=== PATIENT | female | born 1940 | race Caucasian/White ===

== ENCOUNTER → 2024-03-20 17:02 | Outpatient (REF) | payer MEDICARE, BC, SELFPAY | LOC: RAD 17:02 | PROVIDERS: ATTENDING PHYSICIAN Specialist; FAMILY PHYSICIAN Student in an Organized Health Care Education/Training Program | DX: M79.662 Pain in left lower leg (principal) | CPT/HCPCS: 93971 ==

== ENCOUNTER 2024-06-03 10:54 | Emergency (ER) | payer MEDICARE, BC, SELFPAY ==
[2024-06-03 11:02] VITALS: BP 167/70
[2024-06-03 11:48] VITALS: BMI 30.8
--- NOTE | 2024-06-03 13:05 | ED.GENMED ---
History of Present Illness
General
Chief Complaint: Head Injury
Source: patient
Exam Limitations: none
Time Seen by Provider: 06/03/24 12:05
History of Present Illness
History of Present Illness:
84-year-old female presents after a slip and fall. She fell backwards hitting her head. She notes a bump to the back of her head and notes neck pain as well. She notes after she felt her tongue was swollen. She took a Benadryl and that is
improved. There was no loss of conscious. No other complaints at this time
Past History
Past History
ED Past Medical History: Arrthythmia (Atrial fib), Cancer (Skin cancer), GERD, HTN, Hypercholesterolemia, [place] and Other (Pneumonia x 4 with 'scar tissue' in lungs. Followed by Dr. Rene., Hepatitis, Left ankle fracture, )
ED Past Surgical History: Cardiac (Stents X 4), (X 1), Gynecological (Right breast surgery), Orthopedic ( Left wrist surgery, ), Tonsilectomy and Other (cataracts, )
Social History
Tobacco: Non-smoker
Alcohol: None
Drug: None
Personal:
Living: alone
Employment: Retired
Family History
Family History: Unable to obtain
Phy Exam
Physical Exam
Physical Exam:
General: Well-appearing female no acute respiratory distress
HEENT: Normocephalic pupils equal round reactive to light TMs normal contusion noted to posterior scalp there is a bite elizabeth noted to the left side of the tongue the tongue is not swollen posterior pharynx is patent
Neurologic: Alert and oriented normal gait
Musculoskeletal exam: Mild cervical spine tenderness.
Skin: Warm no rash
Course
Orders/Labs/Results
Orders:
Orders
06/03/24 12:45
CT Cervical Spine W/o Iv Contr Urgent
Comment:
Reason For Exam: fall
CT Head W/o Iv Contrast Urgent
Comment:
Reason For Exam: fall
06/03/24 13:09
Acetaminophen [Tylenol] 650 mg PO NOW STA
Vital Signs
Initial and Last Documented VS:
Initial Vital Signs
Temp Pulse Resp BP Pulse Ox
98.2 F 70 18 167/70 97
06/03/24 11:02 06/03/24 11:02 06/03/24 11:02 06/03/24 11:02 06/03/24 11:02
Last Documented Vital Signs
Temp Pulse Resp BP Pulse Ox
98.2 F 70 18 167/70 97
06/03/24 11:02 06/03/24 11:02 06/03/24 11:02 06/03/24 11:02 06/03/24 11:02
MDM/Problems Addressed
Differential Diagnosis Includes:
Slip and fall with head and neck pain. Consider fracture of skull or neck versus intracranial hemorrhage. Also consider just contusion. CT of head and cervical spine pending. I suspect the tongue swelling may be related to biting her tongue when
she fell. There is a bite elizabeth on the side of her tongue. There is no current tongue swelling
*Critical Care Note
Total Time (30-74mins, 75-104mins- exclusive of procedures): Not Applicable
Update Note
Update Note:
CT of head and cervical spine were performed reviewed and are negative for acute findings other than scalp hematoma. There is no fractures. Cervical spine appears well without acute traumatic injury. Patient reassured. Stable for discharge home
ED Attending Note
-
Portions of this chart may have been created with voice recognition software.� Occasional wrong word or��sound alike� substitutions may have occurred due to the inherent limitations of voice recognition software.
Discharge Plan
Departure
Patient Disposition: Home (Routine Discharge)
Date of Disposition: 06/03/24
Time of Disposition: 14:55
Patient with high blood pressure during this ER visit?: No
Discharge Problem:
Contusion
Instructions: Contusion (DC)
Prescriptions:
No Action
calcium carbonate 600 MG tablet
600 mg PO BID
magnesium 250 MG tablet
250 mg PO DAILY
nitroglycerin 0.4 MG tablet, sublingual
0.4 mg sublingual [id number] PRN (Reason: chest pain ) Qty: 25 3RF
pantoprazole 40 MG tablet,delayed release (DR/EC)
40 mg PO BID
amlodipine 5 MG tablet
5 mg PO DAILY Qty: 30 0RF
losartan 50 mg Tablet
50 mg PO DAILY
atorvastatin 80 mg Tablet
80 mg PO DAILY
ascorbic acid (vitamin C) [Vitamin C] 1,000 mg Tablet
1,000 mg PO BID
cetirizine [Zyrtec] 10 mg Tablet
5 mg PO DAILY
cyanocobalamin (vitamin B-12) 1,000 mcg Tablet
1,000 mcg PO DAILY
aspirin 81 mg Tablet,Delayed Release (Dr/Ec)
81 mg PO DAILY
metoprolol succinate 25 mg Tablet Extended Release 24 Hr
25 mg PO DAILY
ezetimibe [Zetia] 10 mg Tablet
10 mg PO DAILY
cholecalciferol (vitamin D3) [Vitamin D3] 50 mcg (2,000 unit) Tablet
50 mcg PO DAILY
[place] 3
1 cap PO DAILY
azithromycin [Zithromax] 250 mg tablet
250 mg PO DAILY 4 Days Qty: 4 0RF
Referrals:
Nohemi Alberto MD [Family Provider] -
Activity Restrictions/Additional Instructions:
You may ice to the sore spot. You may take ibuprofen or Tylenol for pain peer return if worse otherwise follow-up with family doctor
Interventions
Interventions:
*Risk Screen - Suicide Last Done: 06/03/24 11:49
*General Assessment Last Done: 06/03/24 11:02
*Neglect/Abuse Screening Last Done: 06/03/24 11:49
ED- Fall Risk Assessment Last Done: 06/03/24 11:52
*ED COVID-19 Vaccine History Last Done: 06/03/24 11:02
ED- Neurological Assessment Last Done: 06/03/24 11:52
ED-Skin Assessment Last Done: 06/03/24 11:52
Discharge Date and Time
Print Language: OCCITAN
[2024-06-03] MEDS: TYLENOL 650 MG PO (13:21)
[2024-06-03 15:23] VITALS: BP 164/64
[2024-06-03 15:25] VITALS: BP 164/64
== END 2024-06-03 15:42 | disposition home or self-care (01) ==
LOC: EMR 10:54
PROVIDERS: EMERGENCY PHYSICIAN Emergency Medicine; FAMILY PHYSICIAN Student in an Organized Health Care Education/Training Program
DX: S00.03XA Contusion of scalp, initial encounter (principal); W01.0XXA Fall on same level from slipping, tripping and stumbling without subsequent striking against object, initial encounter; I48.91 Unspecified atrial fibrillation; K21.9 Gastro-esophageal reflux disease without esophagitis; I10 Essential (primary) hypertension; E78.00 Pure hypercholesterolemia, unspecified; I25.2 Old myocardial infarction; Z85.828 Personal history of other malignant neoplasm of skin; Z95.5 Presence of coronary angioplasty implant and graft
CPT/HCPCS: 99284; 70450; 72125

== ENCOUNTER 2025-03-28 13:35 | Observation (INO) | payer MEDICARE, BC, SELFPAY ==
[2025-03-28] VITALS (18 sets, daily range): BP systolic 130–225; BP diastolic 55–86; BMI 24.9
--- NOTE | 2025-03-28 08:24 | ED.GENMED ---
History of Present Illness
General
Chief Complaint: Chest Pain
Source: patient and family (Daughter)
Exam Limitations: none
Time Seen by Provider: 03/28/25 07:47
Nursing documentation reviewed up to this point in time: agreed with
History of Present Illness
History of Present Illness:
84-year-old female with a past medical history of hypertension, hyperlipidemia, atrial fibrillation, CAD status post stents, GERD who presents to the emergency room for evaluation of chest pain. Patient reports onset of symptoms around 1 AM when
she woke up to go to the bathroom and they have been constant since that time. She reports pressure in the chest radiates towards the left side and towards the left shoulder. No clear triggering or relieving factors noted. She has associated
dizziness. She reports associated nausea no vomiting. Denies abdominal pain. She denies any shortness of breath. She has had mild nonproductive cough recently. No fever or chills. Denies any swelling or pain in the legs. She denies any other
complaints. She says she had similar symptoms with [place] in 2017. She was seen at that time by Dr. Verdugo.
Past History
Past History
ED Past Medical History: Arrthythmia (Atrial fib), Cancer (Skin cancer), GERD, HTN, Hypercholesterolemia, [place] and Other (Pneumonia x 4 with 'scar tissue' in lungs. Followed by Dr. Rene., Hepatitis, Left ankle fracture, )
ED Past Surgical History: Cardiac (Stents X 4), (X 1), Gynecological (Right breast surgery), Orthopedic ( Left wrist surgery, ), Tonsilectomy and Other (cataracts, )
Social History
Tobacco: Non-smoker
Alcohol: None
Drug: None
Personal:
Living: alone
Employment: Retired
Family History
Family History: Unable to obtain
Review of Systems
Review of Systems
All Other Systems: ROS reviewed and negative except as documented in HPI and ROS
Constitutional: Denies fever
Respiratory: Reports cough; Denies trouble breathing
Cardiac: Reports chest pain; Denies palpitations
ABD/GI: Reports nausea; Denies abdominal pain or vomiting
: Denies flank pain
Musculoskeletal: Denies edema, neck pain or back pain
Neurological: Reports dizzy; Denies headache
Phy Exam
Physical Exam
Physical Exam:
General: Awake, alert, oriented x3; no acute distress
Head: Normocephalic, atraumatic
Eyes: Conjunctiva normal, sclera anicteric
Throat: Airway intact, handling secretions
Neck: Trachea midline, no JVD
Lungs: Clear to auscultation bilaterally, no wheezing, rales, rhonchi
Heart: Regular rate and rhythm, no murmurs, gallops, or rubs
Abd: Soft, non distended, nontender
Neuro: No gross deficits
Skin: no rash in area of concern
Extremities: No edema in extremities, equal pulses in all extremities
Scores
Heart Failure Risk
Heart Failure Risk Score: Not Applicable
Heart Score for Chest Pain Patients
STEMI patient?: No
History: Slightly or Non-Suspicious
ECG: Nonspecific Repolarization
Age: >/= 65 years
Risk Factors: >/= 3 Risk Factors or History of CAD
Troponin: </= Normal Limit
Heart Score for Chest Pain Patients: 5
Heart Score Risk: 20.3% MACE over next 6 weeks
Withdrawal Assessment of Alcohol
Withdrawal Assessment Completed?: Not applicable
Course
Orders/Labs/Results
Orders:
Orders
03/28/25
Electrocardiogram (*1) Stat
Comment: DONE
03/28/25 07:40
Electrocardiogram (*1) Urgent
Reason for Study: Chest Pain
03/28/25 07:41
EKG- Treatment ONCE
03/28/25 07:54
CR Chest - 2 Views Urgent
Comment:
Reason For Exam: cp
03/28/25 08:18
Complete Blood Count/With Diff Urgent
Comprehensive Metabolic Panel Urgent
NT-proBNP Urgent
PT/INR [Prothrombin Time] Urgent
PTT Urgent
Troponin I Urgent
03/28/25 08:23
Aspirin Chewable [Low Strength Aspirin] 243 mg PO NOW STA
Nitroglycerin Sublingual [Nitrostat (Sublingual)] 0.4 mg SL NOW STA
03/28/25 08:41
Nitroglycerin Sublingual [Nitrostat (Sublingual)] 0.4 mg SL NOW STA
03/28/25 08:46
Acetaminophen [Tylenol] 650 mg PO NOW STA
03/28/25 09:04
CARDIOLOGY CONSULT Urgent
Consulting Provider: Ryan Nagy
Was physician already notified: Yes
03/28/25 10:25
Nitroglycerin Ointment [Nitro-Bid] 1 inch TOPICAL NOW STA
Ondansetron Injectable [Zofran] 4 mg IV NOW STA
03/28/25 11:13
Troponin I Urgent
Abnormal Lab Results
03/28/25
08:18
MPV 10.5 H fL
(7.4-10.4)
Chloride 110 H mmol/L
(98-107)
Glucose 126 H mg/dl
(70-99)
03/28/25 08:18
03/28/25 08:18
Vital Signs
Initial and Last Documented VS:
Initial Vital Signs
Temp Pulse Resp BP Pulse Ox
37.1 C 73 18 130/86 94
03/28/25 07:38 03/28/25 07:38 03/28/25 07:38 03/28/25 07:38 03/28/25 07:38
Last Documented Vital Signs
Temp Pulse Resp BP Pulse Ox
37.0 C 50 20 183/55 94
03/28/25 08:21 03/28/25 10:53 03/28/25 08:40 03/28/25 10:53 03/28/25 08:40
MDM/Problems Addressed
Differential Diagnosis Includes:
Angina/ACS, GERD, symptomatic A-fib, pneumonia
MDM/Problems Addressed:
84-year-old female with history as noted presents for evaluation of chest pressure radiating to the left shoulder associated with mild dizziness and mild nausea; she says she had similar symptoms with [place] in 2017. She is hypertensive here otherwise
normal vitals. Physical exam as above. EKG shows no STEMI. Will place an IV send labs including a CBC and a CMP, coags, troponin. Check chest x-ray. Will treat with nitroglycerin and provide aspirin�she took baby aspirin this morning will
provide additional 243 mg chewable. Will monitor very closely reassess after the above.
Initial labs reviewed: CBC and CMP no clinically significant abnormalities. Troponin undetectable. Will trend troponin. Her blood pressure improved with nitroglycerin x 2, symptoms improved she says she is pain-free however she did develop
headache and so was given Tylenol. Given her HEART score and report of similar symptoms with prior [place], case was discussed with cardiology for consultation.
Clinical reassessment patient remains chest pain-free she is having some mild nausea now. Given Zofran. Blood pressure increasing once again now up to 180�will provide some Nitropaste.
Patient seen by cardiology recommended admission for monitoring of symptoms, blood pressure control, trending of troponins. They will consult patient. Case discussed with hospitalist.
Chronic conditions affecting care:
CAD
*Radiology
Radiology exam reviewed: preliminary read by ED provider
*Pulse Oximetry
Patient hypoxic: no
*EKG
Interpreted by ED Provider?: Yes
Heart Rate: 71
Rate: normal
Rhythm: sinus
[place]: normal axis
Interval: first degree heart block
QRS Pattern: normal QRS
Ischemia: other (Nonspecific T wave abnormalities)
*Critical Care Note
Total Time (30-74mins, 75-104mins- exclusive of procedures): Not Applicable
Data Reviewed
Review of Other/Old Records Reveals: Labs and Records
Source: patient, records and family
Patient Management
Discussion with other providers: Hospitalist (Discussed with hospitalist) and Assistant To The Ceo (Discussed with cardiology)
Escalation/DeEscalation of care consider admission/obs:
Admission indicated
ED Attending Note
-
Portions of this chart may have been created with voice recognition software.� Occasional wrong word or��sound alike� substitutions may have occurred due to the inherent limitations of voice recognition software.
Discharge Plan
Departure
Patient Disposition: Admit
Date of Disposition: 03/28/25
Time of Disposition: 11:46
Admit to doctor: Myrna
Presentation/result/management discussed w/ accepting MD/DO: Hospitalist
Discharge Problem:
Chest pain, Hypertension
Prescriptions:
No Action
calcium carbonate 600 MG tablet
600 mg PO BID
magnesium 250 MG tablet
250 mg PO DAILY
nitroglycerin 0.4 MG tablet, sublingual
0.4 mg sublingual [id number] PRN (Reason: chest pain ) Qty: 25 3RF
pantoprazole 40 MG tablet,delayed release (DR/EC)
40 mg PO BID
amlodipine 5 MG tablet
5 mg PO DAILY Qty: 30 0RF
atorvastatin 80 mg Tablet
80 mg PO DAILY
ascorbic acid (vitamin C) [Vitamin C] 1,000 mg Tablet
1,000 mg PO BID
cetirizine [Zyrtec] 10 mg Tablet
5 mg PO DAILY
cyanocobalamin (vitamin B-12) 1,000 mcg Tablet
1,000 mcg PO DAILY
aspirin 81 mg Tablet,Delayed Release (Dr/Ec)
81 mg PO DAILY
metoprolol succinate 25 mg Tablet Extended Release 24 Hr
25 mg PO DAILY
ezetimibe [Zetia] 10 mg Tablet
10 mg PO DAILY
cholecalciferol (vitamin D3) [Vitamin D3] 50 mcg (2,000 unit) Tablet
50 mcg PO DAILY
[place] 3
1 cap PO DAILY
Referrals:
Nohemi Alberto MD [Family Provider] -
Interventions
Interventions:
*Risk Screen - Suicide Last Done: 03/28/25 07:38
*General Assessment Last Done: 03/28/25 07:38
*Neglect/Abuse Screening Last Done: 03/28/25 07:38
*ED- Fall Risk Assessment Last Done: 03/28/25 08:21
*ED COVID-19 Vaccine History Last Done: 03/28/25 08:21
ED- Cardiac Assessment Last Done: 03/28/25 08:21
Discharge Date and Time
Print Language: MALDIVIAN
[2025-03-28 08:32] LABS: INR 0.98; PT 13.3 Sec (11.4-14.6)
[2025-03-28 08:33] LABS: APTT 28.1 Sec (23.4-35.0)
[2025-03-28] MEDS: LOW STRENGTH ASPIRIN 243 MG PO (08:33)
[2025-03-28] MEDS: NITROSTAT (SUBLINGUAL) 0.4 MG SL ×2 (08:33→08:50)
[2025-03-28 08:37] LABS: % Basophils 1.1 % (0-2); % Eosinophils 3.4 % (0-6); % Immature Granulocytes 0.5 % (0-0.5); % Lymphocytes 28.8 % (20.5-51.1); % Monocytes 7.1 % (1.7-9.3); % Neutrophils 59.1 % (42.2-75.2); Absolute Basophils 0.1 10^3/uL (0-0.2); Absolute Eosinophils 0.2 10^3/uL (0-0.7); Absolute Lymphocytes 1.8 10^3/uL (1.2-3.4); Absolute Monocytes 0.4 10^3/uL (0.1-0.6); Absolute Neutrophils 3.6 10^3/uL (1.4-6.5); Hematocrit 38.8 % (37.0-47.0); Hemoglobin 12.8 g/dL (12.0-16.0); Mean Corpuscular Hgb 29.2 pg (27.0-31.0); Mean Corpuscular Volume 88.4 fL (81.0-99.0); Mean Platelet Volume 10.5 fL (7.4-10.4); Nucleated Red Blood Cells % 0 %; Platelet Count 136 10^3/uL (130-400); Red Blood Cell Count 4.39 10^6/uL (4.20-5.40); Red Cell Dist. Width 13.4 % (11.5-14.5); White Blood Cell Count 6.2 10^3/uL (4.8-10.8)
[2025-03-28 08:39] LABS: ALT (SGPT) 17 U/L (0-35); AST (SGOT) 19 U/L (14-36); Albumin 4.3 g/dl (3.5-5.0); Alkaline Phosphatase 76 U/L (38-126); Blood Urea Nitrogen 13 mg/dl (7-17); Calcium 9.2 mg/dl (8.4-10.2); Carbon Dioxide 25 mmol/L (22-30); Chloride 110 mmol/L (98-107); Estimated Creatinine Clearance 68 ml/min; Glucose 126 mg/dl (70-99); Potassium 3.7 mmol/L (3.5-5.1); Sodium 145 mmol/L (135-145); Total Bilirubin 0.6 mg/dl (0.2-1.3); Total Protein 7.3 g/dl (6.3-8.2); eGFR > 60.00
[2025-03-28 08:47] LABS: NT-proBNP 734 pg/ml; Troponin I < 0.012 ng/ml
[2025-03-28] MEDS: TYLENOL 650 MG PO ×2 (08:51→21:11)
--- NOTE | 2025-03-28 10:02 | CON.CAR ---
Addendum entered and electronically signed by Ryan Nagy MD 03/28/25 11:51:
I saw and examined the patient.
The PROPERTY MANAGER's note was reviewed and I agree with the note.
Primary power plant manager Dr. Mullins
84-year-old woman with history of coronary artery disease with previous history of multivessel stenting, LAD, D1 and RCA. Last catheterization 2021 with mild residual CAD. Patient presented with chest discomfort she had some chest discomfort for
30 to 60 minutes at approximately 1 AM midsternal discomfort. She then had some additional discomfort this morning that lasted about an hour and a half. Currently chest pain-free ECG in ER without acute ischemic changes first troponin negative.
Recently blood pressure has been elevated despite compliance with medical therapy. Patient's daughter is at the bedside. They live together. Daughter states that blood pressure was elevated yesterday and is elevated in the ER today systolic blood
pressure currently 180. Patient's normally followed by Dr. Paco Mullins. Back in August she had reported some nocturnal chest discomfort he ordered a nuclear perfusion stress test and it appears it was not completed until months later. Her
last nuclear stress was in December 2024 full report not available but her power plant manager stated that she went 3 minutes and 30 seconds of a Paco protocol achieving 108% of the max peak heart rate with no nuclear perfusion evidence of myocardial
ischemia or prior myocardial infarct there was a small fixed apical perfusion defect felt to be due to soft tissue.
Exact etiology of chest discomfort unclear. Unclear if it is consistent with the previous discomfort that she had in August which was then evaluated by a nuclear stress test. Would consider both cardiac and noncardiac causes. Reviewed issues
with patient and her daughter. I had additional discussion with her primary power plant manager on the phone. And also communicated issues to the emergency department physician.
- Admit for additional observation and treatment
- Treat hypertension. (Increase amlodipine to 10 mg a day. Patient already took her dose this morning so we can give another 5 mg), continue metoprolol, Nitropaste)
- Continue aspirin 81 mg a day
- Serial troponins.
- Continue treatment for reflux. Patient on Protonix as outpatient
- Based on clinical course and results of troponins additional recommendations regarding management will be made.
Original Note:
Consultation
Consultation Request
Date/Time Consultation Requested: 03/28/25 9a
Date/Time Consultation Performed: 03/28/25 9:45a
Requesting Provider: Dr. Ramos
Performing Provider: JERAMIE Gill for Dr. Nagy
Reason for Consultation: chest pressure
Medical History
-
Chief Complaint: chest pressure
History of Present Illness:
Mrs. Kaminski is an 84 yo female (power plant manager is Dr. Mullins) with CAD [place] in 2016 with PCI, widely patent stents (proximal LAD, D1, distal RCA) with mild residual CAD on cath 2021, HTN, HLD, and GERD, who presents to the ER with c/o chest pressure
that woke her from sleep at 1am today. Radiation of pain down left arm, she took an 81mg ASA and fell back asleep. She then woke at her normal time of 5am and noticed the chest pressure was there, but no left arm pain. She waited until her
daughter woke up around 7am and brought her to the ER where she received 2 SL NTG tabs and her chest pressure resolved. She also had high BP upon arrival to the ER that improved with NTG SL. She saw Dr. Mullins in December and had a nuclear
stress test last month that was 'good'. Currently she denies any further chest pressure.
Past Medical History
Past Medical History: Other (as above)
Social History
Tobacco: Non-Smoker
Personal:
Living: With Family (daughter and her family)
Family History
Family History: Reviewed & Not Pertinent
Allergies / Home Medications
Allergy/AdvReac Type Severity Reaction Status Date / Time
GURDEEP Inhibitors Allergy Tongue Verified 03/28/25 07:38
Swelling/angioedema
ARB-Angiotensin Receptor Allergy Swelling/an Verified 03/28/25 07:38
Antagonist gioedema
NSAIDS (Non-Steroidal Allergy Hives Verified 03/28/25 07:38
Anti-Inflamma
prednisone Allergy agitation Verified 03/28/25 07:38
Sulfa (Sulfonamide Allergy pt reports Verified 03/28/25 07:38
Antibiotics) 'turning
blue' as a
child
�Medication �Instructions �Recorded �Confirmed �Type
calcium carbonate 600 mg PO BID Supplement 04/17/17 03/28/25 History
magnesium 250 mg tablet 250 mg PO DAILY Supplement 04/17/17 03/28/25 History
nitroglycerin 0.4 mg sublingual 0.4 mg sublingual [id number] PRN 04/20/17 03/28/25 Rx
tablet chest pain #25 tabs
pantoprazole 40 mg tablet,delayed 40 mg PO BID Gastrointestinal issue 02/08/22 03/28/25 History
release
amlodipine 5 mg tablet 5 mg PO DAILY #30 tabs 02/11/22 03/28/25 Rx
[place] 3 1 cap PO DAILY 04/14/23 03/28/25 History
ascorbic acid (vitamin C) 1,000 mg 1,000 mg PO BID 04/14/23 03/28/25 History
tablet (Vitamin C)
aspirin 81 mg tablet,delayed 81 mg PO DAILY 04/14/23 03/28/25 History
release
atorvastatin 80 mg tablet 80 mg PO DAILY 04/14/23 03/28/25 History
cetirizine 10 mg tablet (Zyrtec) 5 mg PO DAILY 04/14/23 03/28/25 History
cholecalciferol (vitamin D3) 50 50 mcg PO DAILY 04/14/23 03/28/25 History
mcg (2,000 unit) tablet (Vitamin
D3)
cyanocobalamin (vitamin B-12) 1,000 mcg PO DAILY 04/14/23 03/28/25 History
1,000 mcg tablet
ezetimibe 10 mg tablet (Zetia) 10 mg PO DAILY 04/14/23 03/28/25 History
metoprolol succinate 25 mg 25 mg PO DAILY 04/14/23 03/28/25 History
tablet,extended release 24 hr
Review of Systems
-
History Source: Patient
All other systems: Negative unless noted
Physical Exam
Vital Signs
Temp Pulse Resp BP Pulse Ox
98.6 F 58 20 159/68 94
03/28/25 08:21 03/28/25 08:40 03/28/25 08:40 03/28/25 08:55 03/28/25 08:40
Lab Results
03/28/25 08:18
03/28/25 08:18
Troponin I < 0.012 ng/ml 03/28/25 08:18
Urq-[id number] Pept 734 pg/ml 03/28/25 08:18
Physical Exam
General: Well Developed, Well Nourished and No Apparent Distress
HEENT: Normocephalic, Anicteric and Moist Mucous Membranes
Respiratory: Clear and Non Labored Respirations
Cardiac: S1/S2 and Regular Rhythm
Breast: Deferred by me
GI: Soft, Non Tender, Non Distended and Normal Bowel Sounds
Musculoskeletal: No Clubbing, No Cyanosis and No Edema
Skin: Warm and Dry
Neuro: AO x 3
Psych: Calm
Impression / Plan
-
Chest pressure - acute at 1am and again at 5am while sleeping.
- initial troponin < 0.012 and second troponin pending.
- EKG w/o acute ischemia.
- spoke with her power plant manager Dr. Mullins, she had nuclear stress test last month that did not show ischemia.
- await 2nd troponin, if negative then OK to discharge home and follow up with Dr. Mullins as outpatient.
CAD - prior PCI 2017.
- cath 2021 with widely patent stents.
- recent nuclear stress test last month w/o ischemia.
- continue medical therapy.
HTN - elevated on arrival.
- improved with SL NTG.
- continue medical therapy.
HLD - stable on Lipitor, continue.
Data Reviewed
-
EKG: Tracing Personally Visualized and interpreted (SR with 1st degree AVB 72 bpm, T wave abn, no ischemia)
Medical Tests (Nuc Med, Echo etc): Report Reviewed by me (cath report 2021 reviewed as above)
Labs: Labs Reviewed by me
Old Records: Reviewed
[2025-03-28] MEDS: ZOFRAN 4 MG IV (10:52)
[2025-03-28] MEDS: NITRO-BID 1 INCH TOPICAL ×3 (10:53→17:00)
[2025-03-28 11:46] LABS: Troponin I 0.014 ng/ml
--- NOTE | 2025-03-28 11:56 | HPS.HSE ---
Family Physician
-
Family Physician: Nohemi Alberto MD
Chief Complaint
-
CP/ Chest pressure
History of Present Illness
84M non smoker HZ coronary artery disease with previous history of multivessel stenting, LAD, D1 and RCA. Last catheterization 2021 with mild residual CAD. seen at ER
- pw chest discomfort
- onset of symptoms around 1 AM when she woke up to go to the bathroom and they have been constant since that time.
- it radiates towards the left side and towards the left shoulder.
- No clear triggering or relieving factors noted
- associated dizziness, nausea no vomiting.
She had similar symptoms with ND in 2017. She was seen at that time by Dr. Verdugo.
ROS
- denies abdominal pain.
- denies any shortness of breath.
-mild nonproductive cough recently. No fever or chills.
- denies any swelling or pain in the legs.
Medical History
Past Medical History
Past Medical History: Reports Arrhythmia (A Fib), CAD (multivessel stenting, LAD, D1 and RCA. ), Cancer (Skin ), HTN, Hypercholesterolemia, ND and Other (Pneumonia x 4 with 'scar tissue' in lungs. Hepatitis)
Past Surgical History: Reports Cardiac (multivessel stenting, LAD, D1 and RCA. Last catheterization 2021 with mild residual CAD. ), Orthopedic (Left ankle fracture, Left wrist surgery, ), Tonsilectomy and Other (Right breast surgery)
Additional Past Surgical History:
cataracts, )
Social History
Tobacco: Non-smoker
Alcohol: None
Drug: None
Living: With Family
Family History
Family History: Not pertinent
Allergies / Home Medications
Allergies reflects when Allergies were last updated in [facility].
Home Medications with original date entered in [facility]
Allergy/Medication List:
Allergies
Allergy/AdvReac Type Severity Reaction Status Date / Time
GURDEEP Inhibitors Allergy Tongue Verified 03/28/25 07:38
Swelling/angioedema
ARB-Angiotensin Receptor Allergy Swelling/an Verified 03/28/25 07:38
Antagonist gioedema
NSAIDS (Non-Steroidal Allergy Hives Verified 03/28/25 07:38
Anti-Inflamma
prednisone Allergy agitation Verified 03/28/25 07:38
Sulfa (Sulfonamide Allergy pt reports Verified 03/28/25 07:38
Antibiotics) 'turning
blue' as a
child
Home Medications
calcium carbonate 600 mg PO BID Supplement 04/17/17
magnesium 250 mg tablet 250 mg PO DAILY Supplement 04/17/17
nitroglycerin 0.4 mg sublingual tablet 0.4 mg sublingual [id number] PRN chest pain #25 tabs 04/20/17
pantoprazole 40 mg tablet,delayed release 40 mg PO BID Gastrointestinal issue 02/08/22
amlodipine 5 mg tablet 5 mg PO DAILY #30 tabs 02/11/22
[place] 3 1 cap PO DAILY 04/14/23
ascorbic acid (vitamin C) 1,000 mg tablet (Vitamin C) 1,000 mg PO BID 04/14/23
aspirin 81 mg tablet,delayed release 81 mg PO DAILY 04/14/23
atorvastatin 80 mg tablet 80 mg PO DAILY 04/14/23
cetirizine 10 mg tablet (Zyrtec) 5 mg PO DAILY 04/14/23
cholecalciferol (vitamin D3) 50 mcg (2,000 unit) tablet (Vitamin D3) 50 mcg PO DAILY 04/14/23
cyanocobalamin (vitamin B-12) 1,000 mcg tablet 1,000 mcg PO DAILY 04/14/23
ezetimibe 10 mg tablet (Zetia) 10 mg PO DAILY 04/14/23
metoprolol succinate 25 mg tablet,extended release 24 hr 25 mg PO DAILY 04/14/23
losartan 50 mg tablet 50 mg PO QPM 03/28/25
Review of Systems
-
Constitutional: Reports No Symptoms
EENT: Reports No Symptoms
Respiratory: Reports No Symptoms
Cardiac: Reports Chest Pain
Abdomen/GI: Reports No Symptoms
: Reports No Symptoms
Musculoskeletal: Reports No Symptoms
Skin: Reports No Symptoms
Neurological: Reports No Symptoms
Endocrine: Reports No Symptoms
Hematologic/Lymphatic: Reports No Symptoms
Psych: Reports No Symptoms
Physical Exam
Vital Signs
Vital Signs
Temp Pulse Resp BP Pulse Ox
98.6 F 50 20 183/55 94
03/28/25 08:21 03/28/25 10:53 03/28/25 08:40 03/28/25 10:53 03/28/25 08:40
Physical Exam
General: Well Developed, Well Nourished and No Apparent Distress
HEENT: NormoCephalic, Moist mucous membranes and Atraumatic
Respiratory: Clear
Cardiac: S1/S2 and Regular Rhythm; No Murmur or Rub
GI: Soft, Non Tender, Non Distended and Normal Bowel Sounds; No Organomegaly
Rectal: Deferred by Provider
Musculoskeletal: No Clubbing, No Cyanosis and No Edema
Skin: No Rash
Neuro: Nonfocal/grossly intact
Psych: Calm
Laboratory Results
-
03/28/25 08:18
03/28/25 08:18
Laboratory Results
PT 13.3 Sec (11.4-14.6) 03/28/25 08:18
INR 0.98 03/28/25 08:18
APTT 28.1 Sec (23.4-35.0) 03/28/25 08:18
Total Bilirubin 0.6 mg/dl (0.2-1.3) 03/28/25 08:18
AST 19 U/L (14-36) 03/28/25 08:18
ALT 17 U/L (0-35) 03/28/25 08:18
Alkaline Phosphatase 76 U/L (38-126) 03/28/25 08:18
Troponin I 0.014 ng/ml 03/28/25 11:13
Data Reviewed
-
Diagnostic Radiology: Report Reviewed by me
Medical Tests (Nuc Med, Echo, EKG etc): Report Reviewed by me
Lab Data: Labs Reviewed by me
Old Records: Reviewed
Impression/Plan
-
Vital Signs
Temp Pulse Resp BP Pulse Ox
98.6 F 50 20 183/55 94
03/28/25 08:21 03/28/25 10:53 03/28/25 08:40 03/28/25 10:53 03/28/25 08:40
03/28/25
08:21 03/28/25
08:21 03/28/25
10:53
Pulse 59 50
Blood pressure 199/86 206/59 183/55
03/28/25 03/28/25
08:18 11:13
Creatinine 0.6
eGFR > 60.00
Troponin I 0.014
Dhe-M-Hpabnwdxofm Pept 734
ASSESSMENT & PLAN
CXR
1. Normal heart size without radiographic evidence for acute pulmonary edema.
2. 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
EKG
SINUS RHYTHM WITH 1ST DEGREE A-V BLOCK
ST and T WAVE ABNORMALITY, CONSIDER LATERAL ISCHEMIA
ABNORMAL ECG
WHEN COMPARED WITH ECG OF 08-FEB-2022 06:24,
ST NOW DEPRESSED IN LATERAL LEADS
Confirmed by MD SHELLEY, SHARIFA Fonseca ([id number]) on 03/28/2025 10:54:51 AM
02/08/22 TTE
Normal biventricular size and systolic function without regional wall motion abnormality.
No significant valvular disease.
Compared to previous echo 04/18/2017, the LAD wall motion abnormality and ejection fraction have all normalized.
NO PRIOR hospitalist admission:
ASSESSMENT & PLAN
CP similar to prior ND
- @ ER ASA, NTG SL , NTG paste
- curretnly CP free after nitro.
- No STEMI on EKG
- initial trop negative.
- c/w ASA, NTP
- trend troponin
- BP control.
- seen by [facility] cardiology (Dr. Nagy) who recommended bringing in for observation
HTN urgency
Benign HTN
- Increase amlodipine to 10 mg a day- already took her dose this morning so we can give another 5 mg
- continue metoprolol and Losartan
- Initiated Nitrosate
- add IV Hydralazine PRN for SBP > 165, DBP > 110
- if no response will transition to NTG gtt
HLD
- c/w SLIMER Atorvastatin 80mg qpm
GERD
- on Protonix as outpatient
DVT Px: LMWH
Full code
Obs TLM
--- NOTE | 2025-03-28 14:48 | PTCARENOTE ---
Pt transferred from ED. Pt ambulated into room with assistance. Pt AAOX3, able to make needs known, VSS. Pt oriented to unit, tele applied, no complaints of chest pain at this time. Will continue with current plan.
[2025-03-28 15:41] LABS: Troponin I 0.014 ng/ml
[2025-03-28] MEDS: LOVENOX 40 MG SC (17:00)
[2025-03-28] MEDS: LIPITOR 80 MG PO (17:00)
[2025-03-28] MEDS: COZAAR 50 MG PO (17:03)
[2025-03-28] MEDS: ZETIA 10 MG PO (17:04)
[2025-03-28 21:13] LABS: Troponin I < 0.012 ng/ml
[2025-03-29] VITALS (8 sets, daily range): BP systolic 116–190; BP diastolic 50–71; PULSE 75; BMI 26.0
[2025-03-29] MEDS: NITRO-BID 1 INCH TOPICAL ×2 (00:15→05:55)
[2025-03-29] MEDS: APRESOLINE 10 MG IV ×2 (06:06→10:21)
[2025-03-29 06:32] LABS: Troponin I 0.025 ng/ml
[2025-03-29 07:14] LABS: Hematocrit 36.5 % (37.0-47.0); Hemoglobin 11.9 g/dL (12.0-16.0); Mean Corp Hgb Conc. 32.6 g/dL (33.0-37.0); Mean Corpuscular Hgb 28.5 pg (27.0-31.0); Mean Corpuscular Volume 87.5 fL (81.0-99.0); Mean Platelet Volume 11.4 fL (7.4-10.4); Platelet Count 128 10^3/uL (130-400); Red Blood Cell Count 4.17 10^6/uL (4.20-5.40); Red Cell Dist. Width 13.5 % (11.5-14.5); White Blood Cell Count 7.4 10^3/uL (4.8-10.8)
[2025-03-29] MEDS: ASPIR LOW (ENTERIC COATED) 81 MG PO (07:35)
[2025-03-29] MEDS: TOPROL XL 25 MG PO (07:35)
[2025-03-29] MEDS: NORVASC 10 MG PO (07:36)
[2025-03-29 09:46] LABS: ALT (SGPT) 17 U/L (0-35); AST (SGOT) 19 U/L (14-36); Alkaline Phosphatase 70 U/L (38-126); Blood Urea Nitrogen 12 mg/dl (7-17); Calcium 9.1 mg/dl (8.4-10.2); Carbon Dioxide 27 mmol/L (22-30); Chloride 108 mmol/L (98-107); Estimated Creatinine Clearance 68 ml/min; Glucose 151 mg/dl (70-99); Potassium 3.7 mmol/L (3.5-5.1); Sodium 141 mmol/L (135-145); Total Bilirubin 0.5 mg/dl (0.2-1.3); Total Protein 6.7 g/dl (6.3-8.2); eGFR > 60.00
--- NOTE | 2025-03-29 10:12 | W.PN.HOSP.TC ---
Today's Communication/Plan
-
see outlined plan below
Assessment / Plan
Assessment / Plan
Assessment:
Chest pain
Hx of CAD with multi-vessel stenting
- trops normal
- reportedly had nuclear stress December 2024; per cardiology; she went 3 minutes and 30 seconds of a Paco protocol achieving 108% of the max peak heart rate with no nuclear perfusion evidence of myocardial ischemia or prior myocardial infarct
there was a small fixed apical perfusion defect felt to be due to soft tissue.
- continue ASA/Statin
- could be BP related; continue BP med adjustments; make Losartan 50mg BID
- CBC cards following
- check CT-PE study
- with nausea/abd pain, will check UA and also CT A/P
- prn pain control, anti-emetics etc
GERD - PPI
HTN urgency
Benign HTN
- continue Norvasc - now 10mg daily
- increase Losartan to 50mg BID
- wean off nitro
- prn Hydralazine
HLD
- continue statin
DVT ppx: Lovenox
Code: Full
Anticipated Discharge: > 48 hours
Subjective/Interval History
-
Date of Service: March 29, 2025
reports nausea/'upset stomach' and abd pain
feels 'warm'
denies chest pain but reports shoulder discomfort bilaterally
no SOB
Objective Data
-
Labs:
Laboratory Results
03/29/25 03/29/25
05:58 09:14
WBC 7.4
Hgb 11.9 L
Hct 36.5 L
Plt Count 128 L
Sodium Cancelled 141
Potassium Cancelled 3.7
Chloride Cancelled 108 H
Carbon Dioxide Cancelled 27
BUN Cancelled 12
Creatinine Cancelled 0.6
Glucose Cancelled 151 H
Calcium Cancelled 9.1
Total Bilirubin Cancelled 0.5
AST Cancelled 19
ALT Cancelled 17
Alkaline Phosphatase Cancelled 70
Vital Signs:
Vital Signs
Temp Pulse Resp BP Pulse Ox
97.9 F 67 16 190/71 98
03/29/25 07:00 03/29/25 07:00 03/29/25 07:00 03/29/25 07:00 03/29/25 07:00
Physical Exam
-
General: No Apparent Distress
HEENT: Normocephalic and Atraumatic
Respiratory: Negative Wheezes
Cardiac: Regular Rhythm and S1/S2
GI: Soft, Nondistended and Tender (R sided tenderness)
Genito-urinary: No Costovertebral Tender
Musculoskeletal: No Edema
Neuro: AO x 3
Psych: Calm
Data Reviewed
-
Total Time Spent with Patient (in minutes): 44
Labs: Labs Reviewed by me
[2025-03-29] MEDS: TYLENOL 650 MG PO (10:20)
[2025-03-29] MEDS: ZOFRAN 4 MG IV (10:21)
[2025-03-29] MEDS: COZAAR 50 MG PO ×2 (10:30→19:51)
--- NOTE | 2025-03-29 11:16 | W.PN.CD ---
Addendum entered and electronically signed by Ryan Nagy MD 03/29/25 14:45:
I saw and examined the patient.
The CERTIFIED OPTICIAN's note was reviewed and I agree with the note.
Patient with no recurrence of the chest discomfort she did develop some nausea and GI symptoms which have also improved. Patient is ruled out for CO and ECG without ischemic changes. With development of nausea possible that chest discomfort is GI
in nature. Additional evaluation in progress with the hospitalist. Patient also reported some shoulder pain overnight sometimes the left side sometimes right side initially when I walked in she was not having discomfort not clearly reproducible
then she briefly noticed some discomfort on the right side of her neck and then along her right trapezius. Etiology unclear. Blood pressure has improved.
- Continue to monitor blood pressure with the adjustments that have been made this included increase in amlodipine and. addition of losartan. Patient will also remain on low-dose nitrates which had been initiated yesterday. Nitropaste changed to
isosorbide.
- Await results of CT ordered this includes CT chest ( PE protocol ) and abdomen IV and oral
Original Note:
Today's Communication / Plan
-
-transition from nitro-paste to isosorbide
-w/u for other causes of chest discomfort underway
-check another trop to make sure not trending up
Impression / Plan
-
84 yo female (supervisor felting is Dr. Mullins) with CAD CO in 2016 with PCI, widely patent stents (proximal LAD, D1, distal RCA) with mild residual CAD on cath 2021, HTN, HLD, and GERD, who presents to the ER with chest discomfort. Her last nuclear
stress was in December 2024 full report not available but her supervisor felting stated that she went 3 minutes and 30 seconds of a Paco protocol achieving 108% of the max peak heart rate with no nuclear perfusion evidence of myocardial ischemia or prior
myocardial infarct there was a small fixed apical perfusion defect felt to be due to soft tissue.
Chest pressure: resolved
-trops and EKG's are unremarkable
-CT scan being done to evaluate for other etiologies
CAD - prior PCI 2017.
- cath 2021 with widely patent stents.
- recent nuclear stress test last month w/o ischemia.
- continue medical therapy.
HTN - elevated
-IV hydralazine given
-losartan increased today
-amlodipine increased today
-on BB
HLD - stable on Lipitor, continue.
Physical Exam
Vital Signs/Labs
Vital Signs
Temp Pulse Resp BP Pulse Ox
97.9 F 65 16 209/81 98
03/29/25 07:00 03/29/25 10:21 03/29/25 07:00 03/29/25 10:21 03/29/25 07:00
03/28/25 03/29/25 03/30/25
06:59 06:59 06:59
Actual Weight 73.142 kg
03/29/25 05:58
03/29/25 09:14
PT 13.3 Sec (11.4-14.6) 03/28/25 08:18
INR 0.98 03/28/25 08:18
APTT 28.1 Sec (23.4-35.0) 03/28/25 08:18
03/28/25
08:18
Xdy-G-Ywuaoeblzuz Pept 734
LAB Results
03/28/25 03/28/25 03/28/25
08:18 11:13 15:06
Troponin I < 0.012 0.014 0.014
03/28/25 03/28/25 03/28/25
17:00 17:27 20:42
Troponin I Cancelled Cancelled < 0.012
03/28/25 03/29/25
23:00 05:58
Troponin I Cancelled 0.025
Physical Exam
Constitutional: No acute distress
EENT: Anicteric
Cardiovascular: Rhythm & rate is regular and Systolic murmur present (mild)
Respiratory: Respiratory effort normal and Lungs clear to auscul.
Neuro/Psych: AO x 3
Data Reviewed
-
Date of Service: March 29, 2025
EKG: Other (telemetry SR)
Labs: Labs Reviewed by me
[2025-03-29] MEDS: OMNIPAQUE 50 ML PO (11:20)
[2025-03-29] MEDS: IMDUR (EXTENDED RELEASE) 30 MG PO (12:34)
[2025-03-29 13:03] LABS: Troponin I 0.013 ng/ml
[2025-03-29 13:13] LABS: Urine Albumin Negative (Neg - Trace); Urine Bilirubin Negative (Negative); Urine Character Clear (Clear); Urine Color Yellow; Urine Glucose Negative (Negative); Urine Ketone Negative (Negative); Urine Leukocyte 3+ (Negative); Urine Nitrite Negative (Negative); Urine Occult Blood Negative (Negative); Urine Urobilinogen Negative (Neg - 1+)
[2025-03-29 13:56] LABS: Urine White Cell 40-50 /HPF (0-5)
[2025-03-29 13:57] LABS: Urine Bacteria Moderate (Negative); Urine Red Blood Cell 0-2 /HPF (0-2)
[2025-03-29 14:02] LABS: Urine Squamous Cell >30 /LPF (Few)
--- NOTE | 2025-03-29 14:49 | CM ---
multimedia services manager reviewed patient's chart and patient was admitted under obs, [facility] letter provided to patient and signed, placed on chart, patient lives with daughter and son in law in a 2 story home, patient is independent with adl's and ambulation, no
dme, home when stable, no needs.
PCP: Nohemi Alberto
Pharmacy: [facility] in [facility].
Plan; Home when stable, no needs.
[2025-03-29 15:00] LABS: Glycohemoglobin (HgbA1c) 6.4 % (4.0-5.6)
[2025-03-29] MEDS: LOVENOX 40 MG SC (17:26)
[2025-03-29] MEDS: LIPITOR 80 MG PO (17:26)
[2025-03-29] MEDS: ZETIA 10 MG PO (17:26)
[2025-03-30 03:33] VITALS: BP 147/60
[2025-03-30 06:00] VITALS: BMI 25.9
[2025-03-30 06:00] LABS: Hematocrit 34.9 % (37.0-47.0); Hemoglobin 11.5 g/dL (12.0-16.0); Mean Corpuscular Hgb 28.7 pg (27.0-31.0); Mean Platelet Volume 10.8 fL (7.4-10.4); Platelet Count 133 10^3/uL (130-400); Red Blood Cell Count 4.01 10^6/uL (4.20-5.40); Red Cell Dist. Width 13.8 % (11.5-14.5); White Blood Cell Count 7.2 10^3/uL (4.8-10.8)
[2025-03-30 06:27] LABS: Blood Urea Nitrogen 16 mg/dl (7-17); Calcium 9.5 mg/dl (8.4-10.2); Carbon Dioxide 26 mmol/L (22-30); Chloride 107 mmol/L (98-107); Estimated Creatinine Clearance 51 ml/min; Glucose 119 mg/dl (70-99); Potassium 4.3 mmol/L (3.5-5.1); Sodium 138 mmol/L (135-145); eGFR > 60.00
[2025-03-30 07:00] VITALS: BP 162/65
[2025-03-30] MEDS: ASPIR LOW (ENTERIC COATED) 81 MG PO (07:52)
[2025-03-30] MEDS: COZAAR 50 MG PO (07:52)
[2025-03-30] MEDS: TOPROL XL 25 MG PO (07:53)
[2025-03-30] MEDS: NORVASC 10 MG PO (07:53)
[2025-03-30] MEDS: IMDUR (EXTENDED RELEASE) 30 MG PO (07:53)
--- NOTE | 2025-03-30 10:00 | W.PN.HOSP.TC ---
Addendum entered and electronically signed by Clemente Acuña MD 03/30/25 13:55:
Case discussed with Dr. Nagy. The pt is medically cleared for discharge.
Total time spent on d/c = 35 min. This included today's physical exam, progress note, review of laboratory and diagnostic data, preparation of discharge documents and prescriptions, and discussions about the pt's hospital course and discharge plan
with the patient and other medical nurse involved in the patient's care.
Original Note:
Today's Communication/Plan
-
d/c
Assessment / Plan
Assessment / Plan
Gen: NAD, AAOx3.
Eyes: EOMI, PERRLA, no scleral icterus.
Neck: supple.
CV: RRR, +S1/S2, no m/r/g.
Resp: CTAB, no rales, wheezes, or rhonchi.
Abd: +BS, soft, NT, ND
Skin: No rashes.
Neuro: CN 2-12 intact, non-focal.
Psych: Normal mood and affect.
CT C/A/P: No PE. Coronary artery calcifications are present. 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 No CT evidence for left ventricular apical thrombus. Small central hiatal
hernia. Colonic diverticula with no CT evidence for diverticulitis. Fatty infiltration of the liver. Large mass occupying much of the uterus, compatible with a fibroid, diameter 6.6 cm, slightly increased in size since CT examination of April 2019.
Bony degenerative changes as described.
Chest pain:
-h/o CAD with multi-vessel stenting
-trops normal
-reportedly had nuclear stress December 2024; per cardiology; she went 3 minutes and 30 seconds of a Paco protocol achieving 108% of the max peak heart rate with no nuclear perfusion evidence of myocardial ischemia or prior myocardial infarct there
was a small fixed apical perfusion defect felt to be due to soft tissue.
-continue ASA/Statin
-could be related to hypertensive urgency; continue BP med adjustments, Norvasc and Losartan increased, indur added
-cards following
-CT C/A/P without etiology of chest pain
-off nitropaste
Other problems:
GERD: cont PPI
Hypertensive urgency: continue BP med adjustments, Norvasc and Losartan increased, indur added
HLD: Cont statin
FULL/Lovenox
Medically cleared for d/c if OK with cards (message sent to Dr. Ngay at [phone]).
Anticipated Discharge: Today
Subjective/Interval History
-
Date of Service: March 30, 2025
Denies CP. Asking to go home.
Objective Data
-
Labs:
Laboratory Results
03/30/25
05:20
WBC 7.2
Hgb 11.5 L
Hct 34.9 L
Plt Count 133
Sodium 138
Potassium 4.3
Chloride 107
Carbon Dioxide 26
BUN 16
Creatinine 0.8
Glucose 119 H
Calcium 9.5
Vital Signs:
Vital Signs
Temp Pulse Resp BP Pulse Ox
98.0 F 68 16 162/65 94
03/30/25 07:00 03/30/25 07:00 03/30/25 07:00 03/30/25 07:00 03/30/25 07:00
I&O
03/29/25 03/30/25 03/31/25
06:59 06:59 06:59
Intake Total 480 / 480
Balance 480 / 480
[2025-03-30 11:00] VITALS: BP 134/51
--- NOTE | 2025-03-30 13:22 | W.PN.CD ---
Today's Communication / Plan
-
Patient requesting to go home. She is stable and asymptomatic. She is ruled out for myocardial infarction. Her CT had no evidence of PE or dissection. There was report of left ventricular apical aneurysm which appears to be an old finding based
on prior CT as well as prior ventriculogram on cardiac catheterization. It appears this portion of the apex is not easily seen by echocardiography. Follow-up echocardiogram shows overall normal left ventricular function and does not appreciate
apical aneurysm. CT appears to reflect old finding. No additional changes in treatment for this.
Hypertension has improved.
Would recommend continued medical therapy and follow-up with her primary membership advisor Dr. Paco Arreaga
Impression / Plan
-
84 yo female (membership advisor is Dr. Mullins) with CAD CA in 2016 with PCI, widely patent stents (proximal LAD, D1, distal RCA) with mild residual CAD on cath 2021, HTN, HLD, and GERD, who presents to the ER with chest discomfort. Her last nuclear
stress was in December 2024 full report not available but her membership advisor stated that she went 3 minutes and 30 seconds of a Paco protocol achieving 108% of the max peak heart rate with no nuclear perfusion evidence of myocardial ischemia or prior
myocardial infarct there was a small fixed apical perfusion defect felt to be due to soft tissue.
Chest pressure: resolved
- Ruled out for CA. No ischemic ECG changes.
- Exact etiology unclear. Patient developed some vomiting unclear if chest discomfort related to GI issues. Additional workup included a CT scan which was negative for pulmonary embolism and negative for aortic dissection. No other acute
pulmonary pathology and no other acute abdominal pathology. Small hiatal hernia was noted. Patient with known history of diverticulosis but no evidence of diverticulitis.
- Patient was significantly hypertensive on presentation unclear if this was contributing. Blood pressure now better controlled.
- Patient requesting to go home. Reasonable to discharge on outpatient medical therapy and follow-up with Dr. Arreaga
CAD - prior PCI 2017.
- cath 2021 with widely patent stents.
- recent nuclear stress test last month w/o ischemia. Small fixed apical defect suspected to be due to soft tissue but patient does have previous history of infarct
- CT scan of the chest this admit made comment regarding left ventricular apical aneurysm. In review of prior CT from 2018 this also appears to be present. This also was present on review of the cardiac catheterization ventriculogram from 2021.
It is not seen on the echocardiogram from 2021 this is likely because this area of the apex may be difficult to visualize. Sometimes it is difficult to truly visualize the ventricular apex it also has to do with the shape of the ventricle as seen
on her ventriculogram. Follow-up echocardiogram today again shows normal left ventricular function. Apical wall motion abnormality is not appreciated.
Of note the patient had a recent nuclear perfusion stress test I had a verbal report from her membership advisor there was no ischemia. There was a fixed apical perfusion defect there was some suspicion it was related to soft tissue but I suspect some of
this is related to prior infarct as well. Overall CT results appear to reflect an old finding on both prior CT and prior cardiac cath
.
HTN -severe hypertension on presentation. Blood pressure improved with titration of amlodipine, addition of losartan and isosorbide
HLD - stable on Lipitor, continue.
Physical Exam
Vital Signs/Labs
Vital Signs
Temp Pulse Resp BP Pulse Ox
98.0 F 65 16 134/51 94
03/30/25 11:00 03/30/25 11:00 03/30/25 11:00 03/30/25 11:00 03/30/25 11:00
03/29/25 03/30/25 03/31/25
06:59 06:59 06:59
Actual Weight 73.142 kg 72.773 kg
03/30/25 05:20
03/30/25 05:20
PT 13.3 Sec (11.4-14.6) 03/28/25 08:18
INR 0.98 03/28/25 08:18
APTT 28.1 Sec (23.4-35.0) 03/28/25 08:18
03/28/25
08:18
Frl-V-Dcwmmrivcla Pept 734
LAB Results
03/28/25 03/28/25 03/28/25
08:18 11:13 15:06
Troponin I < 0.012 0.014 0.014
03/28/25 03/28/25 03/28/25
17:00 17:27 20:42
Troponin I Cancelled Cancelled < 0.012
03/28/25 03/29/25 03/29/25
23:00 05:58 12:25
Troponin I Cancelled 0.025 0.013 D
Physical Exam
Constitutional: No acute distress and Other (Feels well requesting to go home)
Cardiovascular: Rhythm & rate is regular
Respiratory: Lungs clear to auscul. and Crackles Absent
GI: Soft and Non tender
Neuro/Psych: Alert
Data Reviewed
-
Date of Service: March 30, 2025
Medical Decision Making: Reviewed Test Results
Echo: Report Reviewed by me
Medical Tests (PFT, Pathology etc): Report Reviewed by me and Other (I reviewed prior cath images, prior echo images I reviewed the echocardiogram from today and I reviewed recent CT scan)
Labs: Labs Reviewed by me
--- NOTE | 2025-03-30 13:55 | CM ---
Chart reviewed home no needs at discharge.
Plan; Home no needs.
--- NOTE | 2025-03-31 14:38 | W.DCSUMMARY ---
Discharge Summary
Discharge Data
Date of Admission: 03/28/25
Date of Discharge: 03/30/25
-
Pending Results: No
Hospital Course
Primary diagnoses:
Chest pain due to hypertensive urgency
Secondary diagnoses:
Coronary artery disease s/p multiple stents
Gastroesophageal reflux disease
Hypertension
Consultants:
Cardiology
Imaging:
CT C/A/P: No PE. Coronary artery calcifications are present. 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 No CT evidence for left ventricular apical thrombus. Small central hiatal
hernia. Colonic diverticula with no CT evidence for diverticulitis. Fatty infiltration of the liver. Large mass occupying much of the uterus, compatible with a fibroid, diameter 6.6 cm, slightly increased in size since CT examination of April 2019.
Bony degenerative changes as described.
Echo: Normal left ventricular size and systolic function.
LV ejection fraction is 60-65% .
No regional wall motion abnormalities are seen.
Aortic sclerosis without stenosis
Mild mitral regurgitation
Mild tricuspid regurgitation.
When compared with the echo from 02/08/2022 there is no significant change
Hospital course: 84-year-old female who presented with a chief complaint of chest pain as outlined in the H&P done on admission. She had a history of CAD with multi-vessel stenting. She reportedly had nuclear stress December 2024; per cardiology;
she went 3 minutes and 30 seconds of a Paco protocol achieving 108% of the max peak heart rate with no nuclear perfusion evidence of myocardial ischemia or prior myocardial infarct there was a small fixed apical perfusion defect felt to be due to
soft tissue. Her troponins were normal. She was placed on Nitropaste. Her blood pressure medications were adjusted. Specifically her Norvasc and losartan were increased and Imdur was added. She had a CT scan of the chest abdomen pelvis as above
that did not reveal an etiology of chest pain. The report noted an LV apical aneurysm. For this reason the patient had an echocardiogram as above which did not show an LV apical aneurysm. Based on discussions with cardiology this finding was
likely due to her prior myocardial infarction. The patient was discharged in medically stable condition.
Discharge Plan
-
Patient Disposition: Home (Routine Discharge)
Discharge Diagnosis/Procedures: Hypertensive urgency
Condition: Good
Diet: Low Sodium
Activity: As tolerated
Driving Restrictions: As prior to admission
Referrals:
Nohemi Alberto MD [Family Provider] - in less than 1 week
Prescriptions:
New
losartan 50 mg Tablet
50 mg PO BID Qty: 60 0RF
isosorbide mononitrate 30 mg Tablet Extended Release 24 Hr
30 mg PO DAILY Qty: 30 0RF
amlodipine 10 mg Tablet
10 mg PO DAILY Qty: 30 0RF
Continued
calcium carbonate 600 MG tablet
600 mg PO BID
magnesium 250 MG tablet
250 mg PO DAILY
nitroglycerin 0.4 MG tablet, sublingual
0.4 mg sublingual [id number] PRN (Reason: chest pain ) Qty: 25 3RF
pantoprazole 40 MG tablet,delayed release (DR/EC)
40 mg PO BID
atorvastatin 80 mg Tablet
80 mg PO QPM
ascorbic acid (vitamin C) [Vitamin C] 1,000 mg Tablet
1,000 mg PO BID
cetirizine [Zyrtec] 10 mg Tablet
5 mg PO DAILY
cyanocobalamin (vitamin B-12) 1,000 mcg Tablet
1,000 mcg PO DAILY
aspirin 81 mg Tablet,Delayed Release (Dr/Ec)
81 mg PO DAILY
metoprolol succinate 25 mg Tablet Extended Release 24 Hr
25 mg PO DAILY
ezetimibe [Zetia] 10 mg Tablet
10 mg PO QPM
omega-3 fatty acids-fish oil 684-1,200 mg Capsule,Delayed Release(Dr/Ec)
1 cap PO DAILY
cholecalciferol (vitamin D3) [Vitamin D3] 50 mcg (2,000 unit) Tablet
50 mcg PO DAILY
Discontinued
amlodipine 5 MG tablet
5 mg PO DAILY Qty: 30 0RF
losartan 50 mg Tablet
50 mg PO QPM
Discharge Orders:
Discharge Patient (As Directed); Ordered 03/30/25
Ordered By: Clemente Acuña
Discharge Date and Time
Discharge Date/Time: 03/30/25 14:39
Print Language: SLOVAK
== END 2025-03-30 14:39 | disposition home or self-care (01) ==
LOC: 4 WEST ACU 13:35
PROVIDERS: Internal Medicine; Nurse Practitioner; Nurse Practitioner Family; ADMITTING PHYSICIAN Internal Medicine; ATTENDING PHYSICIAN Internal Medicine; CONSULT PHYSICIAN Internal Medicine Cardiovascular Disease; EMERGENCY PHYSICIAN Emergency Medicine; FAMILY PHYSICIAN Student in an Organized Health Care Education/Training Program
DX: I16.0 Hypertensive urgency (principal); R07.9 Chest pain, unspecified; I25.10 Atherosclerotic heart disease of native coronary artery without angina pectoris; K21.9 Gastro-esophageal reflux disease without esophagitis; I10 Essential (primary) hypertension; E78.00 Pure hypercholesterolemia, unspecified; I48.91 Unspecified atrial fibrillation; R11.0 Nausea; M51.34 Other intervertebral disc degeneration, thoracic region; M51.369 Other intervertebral disc degeneration, lumbar region without mention of lumbar back pain or lower extremity pain; M25.512 Pain in left shoulder; M25.511 Pain in right shoulder; K76.0 Fatty (change of) liver, not elsewhere classified; K57.30 Diverticulosis of large intestine without perforation or abscess without bleeding; K44.9 Diaphragmatic hernia without obstruction or gangrene; I70.0 Atherosclerosis of aorta; I25.3 Aneurysm of heart; D25.9 Leiomyoma of uterus, unspecified; I25.2 Old myocardial infarction; I44.0 Atrioventricular block, first degree; Z95.5 Presence of coronary angioplasty implant and graft; Z85.828 Personal history of other malignant neoplasm of skin; Z88.6 Allergy status to analgesic agent; Z88.2 Allergy status to sulfonamides; Z88.8 Allergy status to other drugs, medicaments and biological substances
CPT/HCPCS: 71046; 71275; 74177; 80048; 80053; 81003; 81015; 83036; 83880; 84484; 85025; 85027; 85610; 85730; 87086; 93005; 93306; 96374; 97162; 99285; G0378; Q9967